=== PATIENT | female | born 1965 | race Caucasian/White ===

== ENCOUNTER 2021-04-01 04:20 | Inpatient (IN) | payer OTHER ==
[2021-04-01] MEDS ORDERED: GENTAMICIN SO4 80 MG/2 ML VIAL ONE (13:30)
[2021-04-01] MEDS ORDERED: THROMBIN (BOVINE) 20,000 UNIT VIAL TP ONE (13:31)
[2021-04-01] MEDS ORDERED: BUPIVACAINE LIPOSOME/PF (EXPAREL) 266 MG/20 ML VIAL ONE (13:31)
[2021-04-01] MEDS ORDERED: DEXAMETHASONE SOD PHOSPHATE 10 MG/1 ML VIAL ONE (14:13)
[2021-04-01] MEDS ORDERED: BUPIVACAINE HCL/PF 0.5% (5MG/ML) 10 ML VIAL ONE (14:13)
[2021-04-01] MEDS ORDERED: MORPHINE 5 MG/10 ML AMP - FOR COMPOUNDING USE ONLY ONE (14:14)
[2021-04-01] MEDS ORDERED: fentaNYL CITRATE 250 MCG/5 ML VIAL ONE (14:14)
[2021-04-01] MEDS ORDERED: MIDAZOLAM HCL 2 MG/2 ML SINGLE DOSE VIAL ONE ×4 (14:14→16:54)
[2021-04-01] MEDS ORDERED: PROPOFOL 20 ML ONE ×8 (14:16→18:26)
[2021-04-01] MEDS ORDERED: DEXMEDETOMIDINE HCL 200 MCG/2 ML IVPB ONE (14:51)
[2021-04-01] MEDS ORDERED: morphine SULFATE/PF 1 MG/2 ML (2cc Syringe - QUVA) IT ONE (15:15)
[2021-04-01] MEDS ORDERED: VANCOMYCIN 1 GM in NS (PRE-DOCKED) 1,000 MG/250 ML IVPB ONE (15:30)
[2021-04-01] MEDS ORDERED: ceFAZolin SODIUM 1 GM VIAL IVPB ONE ×2 (15:30→17:20)
[2021-04-01] MEDS ORDERED: VANCOMYCIN 1,000 MG VIAL (RESTRICTED TO ID ONLY) ONE (15:30)
[2021-04-01] MEDS ORDERED: TRANEXAMIC ACID 1000 MG/10 ML VIAL IVPB ONE (15:30)
[2021-04-01] MEDS ORDERED: ceFAZolin SODIUM 1 GM VIAL ONE ×2 (15:30→17:18)
[2021-04-01] MEDS ORDERED: TRANEXAMIC ACID 1000 MG/10 ML VIAL ONE (15:30)
[2021-04-01] MEDS ORDERED: LIDOCAINE 1%/EPI 1:100000 (20 ML MULTI DOSE VIAL) IJ ONE (15:33)
[2021-04-01] MEDS ORDERED: BACITRACIN 50,000 UNITS VIAL TP ONE (15:35)
[2021-04-01] MEDS ORDERED: GENTAMICIN SO4 80 MG/2 ML VIAL IVPB ONE ×2 (15:35→16:00)
[2021-04-01] MEDS ORDERED: THROMBIN (BOVINE) 5,000 UNIT VIAL TP ONE (15:35)
[2021-04-01] MEDS ORDERED: ONDANSETRON 4 MG/2 ML VIAL ONE (16:40)
[2021-04-01] MEDS ORDERED: DEXAMETHASONE SOD PHOSPHATE 4 MG/1 ML VIAL ONE ×2 (16:40→18:55)
[2021-04-01] MEDS ORDERED: KETAMINE HCL 200 MG/20 ML VIAL ONE (17:29)
[2021-04-01] MEDS ORDERED: GLYCOPYRROLATE 0.2 MG/1 ML VIAL ONE (17:29)
[2021-04-01] MEDS ORDERED: BUPIVACAINE HCL/PF 2.5 MG/ML - 30 ML VIAL IJ ONE (17:34)
[2021-04-01] MEDS ORDERED: BUPIVACAINE LIPOSOME/PF (EXPAREL) 266 MG/20 ML VIAL NR ONE (17:34)
[2021-04-01] MEDS ORDERED: oxyCODONE HCL 5 MG TABLET PO PRN ×2 (17:35)
[2021-04-01] MEDS ORDERED: NALOXONE HCL 0.4 MG/ML VIAL IVPUSH PRN (17:35)
[2021-04-01] MEDS ORDERED: ONDANSETRON 4 MG/2 ML VIAL IVPUSH PRN ×3 (17:35→18:53)
[2021-04-01] MEDS ORDERED: ACETAMINOPHEN 1000 MG/100 ML VIAL (NON FORMULARY) IVPB PRN (17:37)
[2021-04-01] MEDS ORDERED: morphine SULFATE 4 MG/ML VIAL IVPUSH PRN (18:53)
[2021-04-01] MEDS ORDERED: diphenhydrAMINE HCL 25 MG CAPSULE (FP) PO PRN (18:53)
[2021-04-01] MEDS: ACETAMINOPHEN 325 MG TABLET (FP) PO SCH (19:15)
[2021-04-01] MEDS ORDERED: ACETAMINOPHEN INJECTION 100 ML IVPB ONE (19:49)
[2021-04-01] MEDS: LACTATED RINGERS SOLUTION 1,000 ML/1,000 ML INFUS.BAG IV SCH (20:11)
[2021-04-01] MEDS: oxyCODONE HCL 5 MG TABLET PO PRN (21:17)
[2021-04-01] MEDS: DOCUSATE SODIUM 100 MG CAPSULE (FP) PO SCH (22:02)
[2021-04-01] MEDS: HEPARIN NA (PORCINE) 5,000 UNITS/ML 1ML VIAL SQ SCH (22:02)
[2021-04-01] MEDS: diazePAM CARPU-JECT 10 MG/2 ML DISP.SYRIN IVPUSH SCH (22:02)
[2021-04-02] MEDS: ACETAMINOPHEN 325 MG TABLET (FP) PO SCH ×4 (00:32→18:30)
[2021-04-02] MEDS ORDERED: ceFAZolin SODIUM 1 GM VIAL ONE ×3 (01:31→18:17)
[2021-04-02] MEDS ORDERED: DEXTROSE 5%-WATER - 50 ML IVPB ONE ×3 (01:32→18:18)
[2021-04-02] MEDS: CEFAZOLIN 1 GM in DEXTROSE 5%-WATER - 50 ML IVPB SCH ×3 (01:44→18:29)
[2021-04-02] MEDS: oxyCODONE HCL 5 MG TABLET PO PRN ×3 (02:19→14:00)
[2021-04-02 04:43] VITALS: BMI 29.9
[2021-04-02 06:19] LABS: HEMATOCRIT 30.1 % (32.4-45.2); HEMOGLOBIN 10.4 GM/dL (10.7-15.3); MCH 30.6 pg (25.7-33.7); MCHC 34.5 g/dl (32.0-36.0); MEAN CELL VOLUME 88.5 fl (80-96); MEAN PLT VOLUME 8.4 fl (7.5-11.1); PLATELET COUNT 272 10^3/uL (134-434); RDW 13.4 % (11.6-15.6); WHITE BLOOD COUNT 16.7 K/mm3 (4.0-10.0)
[2021-04-02 06:31] LABS: BLOOD UREA NITROGEN 14.1 mg/dL (7-18)
[2021-04-02 06:34] LABS: CALCIUM 7.9 mg/dL (8.5-10.1); CREATININE 0.9 mg/dL (0.55-1.3)
[2021-04-02] MEDS: HEPARIN NA (PORCINE) 5,000 UNITS/ML 1ML VIAL SQ SCH ×3 (06:39→22:59)
[2021-04-02] MEDS: DOCUSATE SODIUM 100 MG CAPSULE (FP) PO SCH ×3 (06:39→22:59)
[2021-04-02] MEDS: FERROUS SO4 325 MG TABLET (FP) PO SCH (09:29)
[2021-04-02] MEDS: FOLIC ACID 1 MG TABLET (FP) PO SCH (09:29)
[2021-04-02] MEDS: diazePAM CARPU-JECT 10 MG/2 ML DISP.SYRIN IVPUSH SCH ×2 (11:05→23:01)
[2021-04-02] MEDS: ASPIRIN COATED 81 MG TABLET.EC PO SCH (11:52)
[2021-04-02] MEDS ORDERED: LEVALBUTEROL HCL 1.25 MG/3 ML IH PRN (15:06)
[2021-04-02] MEDS ORDERED: [UNRECOGNIZED DRUG - OTHER] IH PRN (15:06)
[2021-04-02] MEDS ORDERED: PATIENT'S OWN MEDICATION (NON-FORMULARY) (Ipratropium Bromide [Atrovent Hfa] 12.9 GM Hfa.A IH SCH (15:15)
[2021-04-02] MEDS: LACTATED RINGERS SOLUTION 1,000 ML/1,000 ML INFUS.BAG IV SCH (18:29)
[2021-04-02] MEDS: oxyCODONE HCL 10 MG SUSTAINED ACTING TABLET PO SCH ×2 (18:29→22:59)
[2021-04-02] MEDS ORDERED: ALBUTEROL SO4 HFA INHALER IH PRN (18:40)
[2021-04-02] MEDS ORDERED: LATANOPROST 0.005% OPHTH SOLN 2.5ML BOTTLE OU SCH (22:00)
[2021-04-02] MEDS ORDERED: PATIENT'S OWN MEDICATION (NON-FORMULARY) (Brinzolamide/Brimonidine Tart [Simbrinza 1%-0.2% OP SCH (22:00)
[2021-04-02] MEDS ORDERED: PATIENT'S OWN MEDICATION (NON-FORMULARY) (Cyclosporine [Restasis] 1 EACH Droperette) OP SCH (22:00)
[2021-04-02] MEDS ORDERED: MONTELUKAST NA 10 MG TABLET PO SCH (22:00)
[2021-04-02] MEDS: BRIMONIDINE TARTRATE 0.2% OPHTHALMIC 5 ML BOTTLE OU SCH (22:59)
[2021-04-02] MEDS: BUDESONIDE/FORMETEROL FUMARATE 160/4.5 mcg INHALER IH SCH (23:00)
[2021-04-02] MEDS: DORZOLAMIDE 2% HCL OPHTHALMIC SOLUTION 10 ML BOTTLE OU SCH (23:01)
[2021-04-03] MEDS: ACETAMINOPHEN 325 MG TABLET (FP) PO SCH ×5 (00:08→23:38)
[2021-04-03] MEDS ORDERED: ceFAZolin SODIUM 1 GM VIAL ONE ×3 (01:48→18:09)
[2021-04-03] MEDS ORDERED: DEXTROSE 5%-WATER - 50 ML IVPB ONE ×3 (01:49→18:09)
[2021-04-03] MEDS: CEFAZOLIN 1 GM in DEXTROSE 5%-WATER - 50 ML IVPB SCH ×3 (02:03→18:30)
[2021-04-03] MEDS: HEPARIN NA (PORCINE) 5,000 UNITS/ML 1ML VIAL SQ SCH ×3 (06:01→21:39)
[2021-04-03] MEDS: DOCUSATE SODIUM 100 MG CAPSULE (FP) PO SCH ×3 (06:01→21:39)
[2021-04-03] MEDS: oxyCODONE HCL 5 MG TABLET PO PRN ×3 (06:02→14:36)
[2021-04-03 06:34] LABS: HEMATOCRIT 25.3 % (32.4-45.2); HEMOGLOBIN 8.4 GM/dL (10.7-15.3); LYMPH % 12.7 % (8-40); MCH 30.2 pg (25.7-33.7); MCHC 33.1 g/dl (32.0-36.0); MEAN CELL VOLUME 91.1 fl (80-96); MEAN PLT VOLUME 8.9 fl (7.5-11.1); MONO % 6.1 % (3.8-10.2); NEUT % 81.2 % (42.8-82.8); PLATELET COUNT 236 10^3/uL (134-434); RBC 2.78 M/mm3 (3.60-5.2); RDW 13.7 % (11.6-15.6); WHITE BLOOD COUNT 17.4 K/mm3 (4.0-10.0)
[2021-04-03 07:59] LABS: ALBUMIN 2.4 g/dl (3.4-5.0); BILIRUBIN,TOTAL 0.2 mg/dL (0.2-1); CALCIUM 8.2 mg/dL (8.5-10.1); CREATININE 0.9 mg/dL (0.55-1.3); MAGNESIUM 2.3 mg/dL (1.8-2.4); PHOSPHOROUS 2.6 mg/dL (2.5-4.9); TOT PROT 4.7 g/dl (6.4-8.2)
[2021-04-03] MEDS ORDERED: SODIUM CHLORIDE 1,000 ML IV STA (08:13)
[2021-04-03] MEDS ORDERED: LACTATED RINGERS SOLUTION 1,000 ML/1,000 ML INFUS.BAG IV STA (08:37)
[2021-04-03] MEDS: FERROUS SO4 325 MG TABLET (FP) PO SCH (09:23)
[2021-04-03] MEDS: oxyCODONE HCL 10 MG SUSTAINED ACTING TABLET PO SCH ×2 (09:23→21:39)
[2021-04-03] MEDS: BRIMONIDINE TARTRATE 0.2% OPHTHALMIC 5 ML BOTTLE OU SCH ×2 (09:23→21:38)
[2021-04-03] MEDS: FOLIC ACID 1 MG TABLET (FP) PO SCH (09:23)
[2021-04-03] MEDS: ASPIRIN COATED 81 MG TABLET.EC PO SCH (09:23)
[2021-04-03] MEDS: diazePAM CARPU-JECT 10 MG/2 ML DISP.SYRIN IVPUSH SCH ×2 (09:24→21:41)
[2021-04-03] MEDS: DORZOLAMIDE 2% HCL OPHTHALMIC SOLUTION 10 ML BOTTLE OU SCH ×2 (09:24→21:40)
[2021-04-03] MEDS: BUDESONIDE/FORMETEROL FUMARATE 160/4.5 mcg INHALER IH SCH ×2 (09:27→21:40)
[2021-04-03] MEDS ORDERED: PATIENT'S OWN MEDICATION (NON-FORMULARY) (Linaclotide [Linzess] 145 MCG Capsule) PO SCH (10:00)
[2021-04-03] MEDS ORDERED: TIOTROPIUM BROMIDE 2.5 MCG (SPIRIVA) RESPIMAT INHALER IH SCH (10:00)
[2021-04-03] MEDS ORDERED: VITAMIN B COMPLEX W/C COMBO TABLET (FP) PO SCH (10:00)
[2021-04-03] MEDS ORDERED: PANTOPRAZOLE 20 MG TABLET PO SCH (10:00)
[2021-04-03] MEDS: LACTATED RINGERS SOLUTION 1,000 ML/1,000 ML INFUS.BAG IV SCH ×2 (18:30→19:15)
[2021-04-03] MEDS ORDERED: oxyCODONE HCL 5 MG TABLET PO PRN (19:14)
[2021-04-03] MEDS ORDERED: NALOXONE HCL 0.4 MG/ML VIAL IVPUSH PRN (19:14)
[2021-04-03] MEDS ORDERED: diphenhydrAMINE HCL 25 MG CAPSULE (FP) PO PRN (19:14)
[2021-04-03] MEDS ORDERED: ALBUTEROL SO4 HFA INHALER IH PRN (19:14)
[2021-04-03] MEDS ORDERED: ONDANSETRON 4 MG/2 ML VIAL IVPUSH PRN ×2 (19:14)
[2021-04-03] MEDS: MONTELUKAST NA 10 MG TABLET PO SCH (21:40)
[2021-04-03] MEDS: LATANOPROST 0.005% OPHTH SOLN 2.5ML BOTTLE OU SCH (21:41)
[2021-04-04] MEDS ORDERED: ceFAZolin SODIUM 1 GM VIAL ONE ×3 (01:11→15:09)
[2021-04-04] MEDS ORDERED: DEXTROSE 5%-WATER - 50 ML IVPB ONE ×3 (01:12→15:09)
[2021-04-04] MEDS: CEFAZOLIN 1 GM in DEXTROSE 5%-WATER - 50 ML IVPB SCH ×3 (01:15→17:42)
[2021-04-04] MEDS: oxyCODONE HCL 5 MG TABLET PO PRN ×2 (03:38→19:25)
[2021-04-04] MEDS: ACETAMINOPHEN 325 MG TABLET (FP) PO SCH ×3 (05:06→17:42)
[2021-04-04] MEDS: DOCUSATE SODIUM 100 MG CAPSULE (FP) PO SCH ×3 (05:08→22:42)
[2021-04-04] MEDS: HEPARIN NA (PORCINE) 5,000 UNITS/ML 1ML VIAL SQ SCH ×3 (05:08→22:43)
[2021-04-04 07:02] LABS: BASO % 0.1 % (0-2.0); EOS % 0.3 % (0-4.5); HEMATOCRIT 23.5 % (32.4-45.2); LYMPH % 31.9 % (8-40); MCH 30.8 pg (25.7-33.7); MCHC 34.2 g/dl (32.0-36.0); MEAN CELL VOLUME 89.9 fl (80-96); MEAN PLT VOLUME 8.1 fl (7.5-11.1); MONO % 6.7 % (3.8-10.2); PLATELET COUNT 204 10^3/uL (134-434); RBC 2.61 M/mm3 (3.60-5.2)
[2021-04-04 07:23] LABS: ALBUMIN 2.3 g/dl (3.4-5.0); CALCIUM 7.9 mg/dL (8.5-10.1)
[2021-04-04 07:24] LABS: BLOOD UREA NITROGEN 9.7 mg/dL (7-18); MAGNESIUM 2.2 mg/dL (1.8-2.4)
[2021-04-04 07:26] LABS: CREATININE 0.7 mg/dL (0.55-1.3)
[2021-04-04 07:27] LABS: PHOSPHOROUS 2.3 mg/dL (2.5-4.9)
[2021-04-04 07:28] LABS: BILIRUBIN,TOTAL 0.4 mg/dL (0.2-1); TOT PROT 4.6 g/dl (6.4-8.2)
[2021-04-04] MEDS ORDERED: SODIUM PHOSPHATE - 20 MM in DEXTROSE 5%-WATER - 250 ML IVPB ONE (08:30)
[2021-04-04] MEDS: diazePAM CARPU-JECT 10 MG/2 ML DISP.SYRIN IVPUSH SCH (09:55)
[2021-04-04] MEDS: oxyCODONE HCL 10 MG SUSTAINED ACTING TABLET PO SCH ×2 (09:55→22:41)
[2021-04-04] MEDS: BRIMONIDINE TARTRATE 0.2% OPHTHALMIC 5 ML BOTTLE OU SCH ×2 (09:58→22:39)
[2021-04-04] MEDS: DORZOLAMIDE 2% HCL OPHTHALMIC SOLUTION 10 ML BOTTLE OU SCH ×2 (09:59→22:41)
[2021-04-04] MEDS: BUDESONIDE/FORMETEROL FUMARATE 160/4.5 mcg INHALER IH SCH ×2 (09:59→22:43)
[2021-04-04] MEDS ORDERED: PATIENT'S OWN MEDICATION (NON-FORMULARY) (Linaclotide [Linzess] 145 MCG) PO SCH (10:00)
[2021-04-04] MEDS ORDERED: VITAMIN B COMPLEX W/C COMBO TABLET (FP) PO SCH (10:00)
[2021-04-04] MEDS ORDERED: FOLIC ACID 1 MG TABLET (FP) PO SCH (10:00)
[2021-04-04] MEDS ORDERED: PANTOPRAZOLE 20 MG TABLET PO SCH (10:00)
[2021-04-04] MEDS ORDERED: FERROUS SO4 325 MG TABLET (FP) PO SCH (10:00)
[2021-04-04] MEDS ORDERED: TIOTROPIUM BROMIDE 2.5 MCG (SPIRIVA) RESPIMAT INHALER IH SCH (10:00)
[2021-04-04] MEDS ORDERED: ASPIRIN COATED 81 MG TABLET.EC PO SCH (10:00)
[2021-04-04] MEDS: LACTATED RINGERS SOLUTION 1,000 ML/1,000 ML INFUS.BAG IV SCH ×2 (15:58→19:20)
[2021-04-04] MEDS ORDERED: BACLOFEN 10 MG TABLET (FP) PO ONE (21:32)
[2021-04-04] MEDS: LATANOPROST 0.005% OPHTH SOLN 2.5ML BOTTLE OU SCH (22:41)
[2021-04-04] MEDS: MONTELUKAST NA 10 MG TABLET PO SCH (22:43)
[2021-04-05] MEDS: LACTATED RINGERS SOLUTION 1,000 ML/1,000 ML INFUS.BAG IV SCH ×2 (00:36→10:30)
[2021-04-05] MEDS ORDERED: ceFAZolin SODIUM 1 GM VIAL ONE ×3 (02:06→17:19)
[2021-04-05] MEDS ORDERED: DEXTROSE 5%-WATER - 50 ML IVPB ONE ×3 (02:07→17:19)
[2021-04-05] MEDS: CEFAZOLIN 1 GM in DEXTROSE 5%-WATER - 50 ML IVPB SCH ×3 (02:15→17:28)
[2021-04-05] MEDS: ACETAMINOPHEN 325 MG TABLET (FP) PO SCH ×5 (02:17→23:39)
[2021-04-05] MEDS: DOCUSATE SODIUM 100 MG CAPSULE (FP) PO SCH ×3 (07:28→21:09)
[2021-04-05] MEDS ORDERED: ALBUTEROL SO4 HFA INHALER IH PRN (07:30)
[2021-04-05] MEDS ORDERED: ONDANSETRON 4 MG/2 ML VIAL IVPUSH PRN (07:30)
[2021-04-05] MEDS ORDERED: diphenhydrAMINE HCL 25 MG CAPSULE (FP) PO PRN (07:30)
[2021-04-05] MEDS ORDERED: NALOXONE HCL 0.4 MG/ML VIAL IVPUSH PRN (07:30)
[2021-04-05] MEDS: HEPARIN NA (PORCINE) 5,000 UNITS/ML 1ML VIAL SQ SCH ×3 (07:31→21:06)
[2021-04-05 07:47] LABS: BASO % 0.3 % (0-2.0); EOS % 0.7 % (0-4.5); HEMATOCRIT 25.8 % (32.4-45.2); HEMOGLOBIN 8.9 GM/dL (10.7-15.3); LYMPH % 32.6 % (8-40); MCH 31.1 pg (25.7-33.7); MCHC 34.4 g/dl (32.0-36.0); MEAN CELL VOLUME 90.5 fl (80-96); MEAN PLT VOLUME 8.1 fl (7.5-11.1); MONO % 5.1 % (3.8-10.2); NEUT % 61.3 % (42.8-82.8); PLATELET COUNT 241 10^3/uL (134-434); RBC 2.85 M/mm3 (3.60-5.2); RDW 13.9 % (11.6-15.6); WHITE BLOOD COUNT 10.4 K/mm3 (4.0-10.0)
[2021-04-05] MEDS: PATIENT'S OWN MEDICATION (NON-FORMULARY) (Cyclosporine [Restasis] 1 EACH) OP SCH (07:49)
[2021-04-05 08:12] LABS: ALBUMIN 2.4 g/dl (3.4-5.0); BILIRUBIN,TOTAL 0.3 mg/dL (0.2-1); BLOOD UREA NITROGEN 6.9 mg/dL (7-18); CALCIUM 8.2 mg/dL (8.5-10.1); CREATININE 0.7 mg/dL (0.55-1.3); MAGNESIUM 2.4 mg/dL (1.8-2.4); PHOSPHOROUS 2.6 mg/dL (2.5-4.9); TOT PROT 4.9 g/dl (6.4-8.2)
[2021-04-05] MEDS: PANTOPRAZOLE 20 MG TABLET PO SCH (09:42)
[2021-04-05] MEDS: FOLIC ACID 1 MG TABLET (FP) PO SCH (09:42)
[2021-04-05] MEDS: ASPIRIN COATED 81 MG TABLET.EC PO SCH (09:43)
[2021-04-05] MEDS: VITAMIN B COMPLEX W/C COMBO TABLET (FP) PO SCH (09:43)
[2021-04-05] MEDS: oxyCODONE HCL 10 MG SUSTAINED ACTING TABLET PO SCH ×2 (09:43→21:16)
[2021-04-05] MEDS: FERROUS SO4 325 MG TABLET (FP) PO SCH (09:43)
[2021-04-05] MEDS: BUDESONIDE/FORMETEROL FUMARATE 160/4.5 mcg INHALER IH SCH ×2 (09:46→21:18)
[2021-04-05] MEDS: TIOTROPIUM BROMIDE 2.5 MCG (SPIRIVA) RESPIMAT INHALER IH SCH (09:47)
[2021-04-05] MEDS: BRIMONIDINE TARTRATE 0.2% OPHTHALMIC 5 ML BOTTLE OU SCH ×2 (09:47→23:40)
[2021-04-05] MEDS: DORZOLAMIDE 2% HCL OPHTHALMIC SOLUTION 10 ML BOTTLE OU SCH ×2 (09:48→21:18)
[2021-04-05] MEDS ORDERED: PATIENT'S OWN MEDICATION (NON-FORMULARY) (Cyclosporine [Restasis] 1 EACH) OP SCH (10:00)
[2021-04-05] MEDS ORDERED: PATIENT'S OWN MEDICATION (NON-FORMULARY) (Linaclotide [Linzess] 145 MCG) PO SCH (10:00)
[2021-04-05] MEDS: MONTELUKAST NA 10 MG TABLET PO SCH (21:09)
[2021-04-05] MEDS: LATANOPROST 0.005% OPHTH SOLN 2.5ML BOTTLE OU SCH (21:19)
[2021-04-06] MEDS ORDERED: DEXTROSE 5%-WATER - 50 ML IVPB ONE ×3 (01:29→18:04)
[2021-04-06] MEDS ORDERED: ceFAZolin SODIUM 1 GM VIAL ONE ×3 (01:29→18:03)
[2021-04-06] MEDS: CEFAZOLIN 1 GM in DEXTROSE 5%-WATER - 50 ML IVPB SCH ×3 (01:31→18:47)
[2021-04-06] MEDS: oxyCODONE HCL 5 MG TABLET PO PRN ×3 (03:26→19:35)
[2021-04-06] MEDS: LACTATED RINGERS SOLUTION 1,000 ML/1,000 ML INFUS.BAG IV SCH ×2 (04:00→09:15)
[2021-04-06] MEDS: HEPARIN NA (PORCINE) 5,000 UNITS/ML 1ML VIAL SQ SCH ×3 (05:07→21:52)
[2021-04-06] MEDS: ACETAMINOPHEN 325 MG TABLET (FP) PO SCH ×4 (05:08→23:06)
[2021-04-06] MEDS: DOCUSATE SODIUM 100 MG CAPSULE (FP) PO SCH ×3 (05:09→21:52)
[2021-04-06 08:58] LABS: BASO % 0.3 % (0-2.0); EOS % 1.1 % (0-4.5); HEMATOCRIT 24.3 % (32.4-45.2); HEMOGLOBIN 8.3 GM/dL (10.7-15.3); LYMPH % 24.7 % (8-40); MEAN CELL VOLUME 91.1 fl (80-96); MEAN PLT VOLUME 8.2 fl (7.5-11.1); MONO % 5.5 % (3.8-10.2); NEUT % 68.4 % (42.8-82.8); PLATELET COUNT 266 10^3/uL (134-434); RBC 2.67 M/mm3 (3.60-5.2); RDW 13.9 % (11.6-15.6); WHITE BLOOD COUNT 9.2 K/mm3 (4.0-10.0)
[2021-04-06] MEDS: oxyCODONE HCL 10 MG SUSTAINED ACTING TABLET PO SCH ×2 (09:21→21:52)
[2021-04-06] MEDS: ASPIRIN COATED 81 MG TABLET.EC PO SCH (09:22)
[2021-04-06] MEDS: PANTOPRAZOLE 20 MG TABLET PO SCH (09:23)
[2021-04-06] MEDS: BRIMONIDINE TARTRATE 0.2% OPHTHALMIC 5 ML BOTTLE OU SCH ×2 (09:23→21:56)
[2021-04-06] MEDS: FOLIC ACID 1 MG TABLET (FP) PO SCH (09:24)
[2021-04-06] MEDS: TIOTROPIUM BROMIDE 2.5 MCG (SPIRIVA) RESPIMAT INHALER IH SCH (09:24)
[2021-04-06] MEDS: BUDESONIDE/FORMETEROL FUMARATE 160/4.5 mcg INHALER IH SCH ×2 (09:24→21:57)
[2021-04-06] MEDS: FERROUS SO4 325 MG TABLET (FP) PO SCH (09:24)
[2021-04-06] MEDS: VITAMIN B COMPLEX W/C COMBO TABLET (FP) PO SCH (09:25)
[2021-04-06 09:29] LABS: ALBUMIN 2.3 g/dl (3.4-5.0); MAGNESIUM 2.3 mg/dL (1.8-2.4)
[2021-04-06 09:30] LABS: PHOSPHOROUS 2.8 mg/dL (2.5-4.9)
[2021-04-06 09:32] LABS: CREATININE 0.7 mg/dL (0.55-1.3)
[2021-04-06 09:34] LABS: BILIRUBIN,TOTAL 0.3 mg/dL (0.2-1); TOT PROT 4.7 g/dl (6.4-8.2)
[2021-04-06] MEDS: DORZOLAMIDE 2% HCL OPHTHALMIC SOLUTION 10 ML BOTTLE OU SCH ×2 (10:00→21:56)
[2021-04-06] MEDS: MONTELUKAST NA 10 MG TABLET PO SCH (21:52)
[2021-04-06] MEDS: LATANOPROST 0.005% OPHTH SOLN 2.5ML BOTTLE OU SCH (21:56)
[2021-04-07] MEDS ORDERED: ceFAZolin SODIUM 1 GM VIAL ONE ×3 (01:05→17:21)
[2021-04-07] MEDS ORDERED: DEXTROSE 5%-WATER - 50 ML IVPB ONE ×3 (01:06→17:21)
[2021-04-07] MEDS: CEFAZOLIN 1 GM in DEXTROSE 5%-WATER - 50 ML IVPB SCH ×3 (01:12→17:26)
[2021-04-07] MEDS: DOCUSATE SODIUM 100 MG CAPSULE (FP) PO SCH ×3 (05:55→21:21)
[2021-04-07] MEDS: HEPARIN NA (PORCINE) 5,000 UNITS/ML 1ML VIAL SQ SCH ×3 (05:55→21:26)
[2021-04-07] MEDS: ACETAMINOPHEN 325 MG TABLET (FP) PO SCH ×3 (05:56→17:24)
[2021-04-07 08:34] LABS: HEMATOCRIT 24.4 % (32.4-45.2); HEMOGLOBIN 8.3 GM/dL (10.7-15.3); MCH 31.2 pg (25.7-33.7); MCHC 34.1 g/dl (32.0-36.0); MEAN CELL VOLUME 91.4 fl (80-96); MEAN PLT VOLUME 7.8 fl (7.5-11.1); PLATELET COUNT 292 10^3/uL (134-434); RBC 2.67 M/mm3 (3.60-5.2); RDW 14.2 % (11.6-15.6)
[2021-04-07] MEDS: oxyCODONE HCL 10 MG SUSTAINED ACTING TABLET PO SCH ×2 (09:13→21:21)
[2021-04-07] MEDS: VITAMIN B COMPLEX W/C COMBO TABLET (FP) PO SCH (09:16)
[2021-04-07] MEDS: FOLIC ACID 1 MG TABLET (FP) PO SCH (09:16)
[2021-04-07] MEDS: FERROUS SO4 325 MG TABLET (FP) PO SCH (09:16)
[2021-04-07] MEDS: ASPIRIN COATED 81 MG TABLET.EC PO SCH (09:16)
[2021-04-07] MEDS: TIOTROPIUM BROMIDE 2.5 MCG (SPIRIVA) RESPIMAT INHALER IH SCH (09:17)
[2021-04-07] MEDS: BUDESONIDE/FORMETEROL FUMARATE 160/4.5 mcg INHALER IH SCH ×2 (09:18→21:24)
[2021-04-07] MEDS: DORZOLAMIDE 2% HCL OPHTHALMIC SOLUTION 10 ML BOTTLE OU SCH ×2 (09:21→21:23)
[2021-04-07] MEDS: PANTOPRAZOLE 20 MG TABLET PO SCH (09:21)
[2021-04-07] MEDS: BRIMONIDINE TARTRATE 0.2% OPHTHALMIC 5 ML BOTTLE OU SCH ×2 (09:22→21:21)
[2021-04-07 10:11] LABS: ANISOCYTOSIS 0; MACROCYTOSIS 0; PLATELET ESTIMATE NORMAL
[2021-04-07] MEDS: oxyCODONE HCL 5 MG TABLET PO PRN ×2 (13:20→17:26)
[2021-04-07] MEDS: CYCLOBENZAPRINE HCL 10 MG TABLET (FP) PO PRN ×2 (13:27→21:35)
[2021-04-07] MEDS: MONTELUKAST NA 10 MG TABLET PO SCH (21:22)
[2021-04-07] MEDS: LATANOPROST 0.005% OPHTH SOLN 2.5ML BOTTLE OU SCH (21:23)
[2021-04-08] MEDS ORDERED: ceFAZolin SODIUM 1 GM VIAL ONE ×3 (01:32→16:53)
[2021-04-08] MEDS ORDERED: DEXTROSE 5%-WATER - 50 ML IVPB ONE ×3 (01:33→16:53)
[2021-04-08] MEDS: CEFAZOLIN 1 GM in DEXTROSE 5%-WATER - 50 ML IVPB SCH ×3 (01:37→17:05)
[2021-04-08] MEDS: oxyCODONE HCL 5 MG TABLET PO PRN ×2 (04:04→15:01)
[2021-04-08] MEDS: ACETAMINOPHEN 325 MG TABLET (FP) PO SCH ×2 (06:07→06:08)
[2021-04-08] MEDS: CYCLOBENZAPRINE HCL 10 MG TABLET (FP) PO PRN (06:08)
[2021-04-08] MEDS: HEPARIN NA (PORCINE) 5,000 UNITS/ML 1ML VIAL SQ SCH ×3 (06:09→21:54)
[2021-04-08] MEDS: DOCUSATE SODIUM 100 MG CAPSULE (FP) PO SCH ×3 (06:10→21:53)
[2021-04-08] MEDS: HYDROmorphone HCl 2 MG/ML VIAL IVPUSH PRN ×4 (08:03→20:16)
[2021-04-08] MEDS ORDERED: oxyCODONE HCL 5 MG TABLET PO PRN (10:33)
[2021-04-08] MEDS: VITAMIN B COMPLEX W/C COMBO TABLET (FP) PO SCH (12:01)
[2021-04-08] MEDS: BUDESONIDE/FORMETEROL FUMARATE 160/4.5 mcg INHALER IH SCH ×2 (12:01→21:54)
[2021-04-08] MEDS: PANTOPRAZOLE 20 MG TABLET PO SCH (12:01)
[2021-04-08] MEDS: ASPIRIN COATED 81 MG TABLET.EC PO SCH (12:01)
[2021-04-08] MEDS: FERROUS SO4 325 MG TABLET (FP) PO SCH (12:01)
[2021-04-08] MEDS: FOLIC ACID 1 MG TABLET (FP) PO SCH (12:01)
[2021-04-08] MEDS: BRIMONIDINE TARTRATE 0.2% OPHTHALMIC 5 ML BOTTLE OU SCH ×2 (12:02→21:54)
[2021-04-08] MEDS: DORZOLAMIDE 2% HCL OPHTHALMIC SOLUTION 10 ML BOTTLE OU SCH ×2 (12:02→21:54)
[2021-04-08] MEDS: ACETAMINOPHEN 500 MG TABLET (FP) PO SCH ×3 (12:02→21:54)
[2021-04-08] MEDS: TIOTROPIUM BROMIDE 2.5 MCG (SPIRIVA) RESPIMAT INHALER IH SCH (12:02)
[2021-04-08] MEDS: CYCLOBENZAPRINE HCL 10 MG TABLET (FP) PO SCH ×2 (14:58→21:53)
[2021-04-08] MEDS: MONTELUKAST NA 10 MG TABLET PO SCH (21:53)
[2021-04-08] MEDS: LATANOPROST 0.005% OPHTH SOLN 2.5ML BOTTLE OU SCH (21:54)
[2021-04-09] MEDS: HYDROmorphone HCl 2 MG/ML VIAL IVPUSH PRN ×3 (00:20→08:50)
[2021-04-09] MEDS ORDERED: ceFAZolin SODIUM 1 GM VIAL ONE ×3 (01:08→16:40)
[2021-04-09] MEDS ORDERED: DEXTROSE 5%-WATER - 50 ML IVPB ONE ×3 (01:08→16:40)
[2021-04-09] MEDS: CEFAZOLIN 1 GM in DEXTROSE 5%-WATER - 50 ML IVPB SCH ×3 (01:19→17:53)
[2021-04-09] MEDS: CYCLOBENZAPRINE HCL 10 MG TABLET (FP) PO SCH ×3 (05:03→21:10)
[2021-04-09] MEDS: HEPARIN NA (PORCINE) 5,000 UNITS/ML 1ML VIAL SQ SCH ×3 (05:03→21:10)
[2021-04-09] MEDS: DOCUSATE SODIUM 100 MG CAPSULE (FP) PO SCH ×3 (05:03→21:10)
[2021-04-09] MEDS: ACETAMINOPHEN 500 MG TABLET (FP) PO SCH ×2 (05:03→11:06)
[2021-04-09 07:48] LABS: HEMATOCRIT 27.5 % (32.4-45.2); HEMOGLOBIN 9.2 GM/dL (10.7-15.3); MCH 30.8 pg (25.7-33.7); MCHC 33.5 g/dl (32.0-36.0); MEAN CELL VOLUME 91.8 fl (80-96); MEAN PLT VOLUME 7.3 fl (7.5-11.1); PLATELET COUNT 372 10^3/uL (134-434); RBC 2.99 M/mm3 (3.60-5.2); RDW 14.6 % (11.6-15.6); WHITE BLOOD COUNT 12.9 K/mm3 (4.0-10.0)
[2021-04-09 08:05] LABS: BILIRUBIN,TOTAL 0.3 mg/dL (0.2-1); TOT PROT 6.2 g/dl (6.4-8.2)
[2021-04-09 08:06] LABS: BLOOD UREA NITROGEN 15.6 mg/dL (7-18); CALCIUM 8.4 mg/dL (8.5-10.1)
[2021-04-09 08:07] LABS: MAGNESIUM 2.2 mg/dL (1.8-2.4)
[2021-04-09 08:08] LABS: CREATININE 0.7 mg/dL (0.55-1.3)
[2021-04-09 08:09] LABS: PHOSPHOROUS 3.3 mg/dL (2.5-4.9)
[2021-04-09 08:28] LABS: ALBUMIN 2.8 g/dl (3.4-5.0)
[2021-04-09] MEDS ORDERED: PT OWN MED DRAWER 7, Y5N ONE (08:39)
[2021-04-09] MEDS ORDERED: HYDROmorphone HCl 2 MG/ML VIAL IVPUSH PRN (08:58)
[2021-04-09] MEDS ORDERED: LACTATED RINGERS SOLUTION 1000 ML INFUS.BAG IV ONE (09:01)
[2021-04-09] MEDS: FERROUS SO4 325 MG TABLET (FP) PO SCH (09:01)
[2021-04-09] MEDS: VITAMIN B COMPLEX W/C COMBO TABLET (FP) PO SCH (09:01)
[2021-04-09] MEDS: PANTOPRAZOLE 20 MG TABLET PO SCH (09:01)
[2021-04-09] MEDS: FOLIC ACID 1 MG TABLET (FP) PO SCH (09:01)
[2021-04-09] MEDS: BRIMONIDINE TARTRATE 0.2% OPHTHALMIC 5 ML BOTTLE OU SCH ×2 (09:02→21:09)
[2021-04-09] MEDS: DORZOLAMIDE 2% HCL OPHTHALMIC SOLUTION 10 ML BOTTLE OU SCH ×2 (09:02→21:09)
[2021-04-09] MEDS: TIOTROPIUM BROMIDE 2.5 MCG (SPIRIVA) RESPIMAT INHALER IH SCH (09:02)
[2021-04-09] MEDS: BUDESONIDE/FORMETEROL FUMARATE 160/4.5 mcg INHALER IH SCH ×2 (09:02→21:07)
[2021-04-09] MEDS: ASPIRIN COATED 81 MG TABLET.EC PO SCH (09:03)
[2021-04-09 10:56] LABS: ANISOCYTOSIS 0; MACROCYTOSIS 0; PLATELET ESTIMATE NORMAL
[2021-04-09] MEDS: oxyCODONE HCL 5 MG TABLET PO PRN (16:34)
[2021-04-09] MEDS: LATANOPROST 0.005% OPHTH SOLN 2.5ML BOTTLE OU SCH (21:09)
[2021-04-09] MEDS: MONTELUKAST NA 10 MG TABLET PO SCH (21:10)
[2021-04-10] MEDS ORDERED: ceFAZolin SODIUM 1 GM VIAL ONE ×2 (01:44→10:09)
[2021-04-10] MEDS ORDERED: DEXTROSE 5%-WATER - 50 ML IVPB ONE ×2 (01:44→10:09)
[2021-04-10] MEDS: CEFAZOLIN 1 GM in DEXTROSE 5%-WATER - 50 ML IVPB SCH ×2 (01:52→10:23)
[2021-04-10] MEDS: oxyCODONE HCL 5 MG TABLET PO PRN ×2 (02:16→10:23)
[2021-04-10] MEDS: CYCLOBENZAPRINE HCL 10 MG TABLET (FP) PO SCH (05:55)
[2021-04-10] MEDS: DOCUSATE SODIUM 100 MG CAPSULE (FP) PO SCH (05:55)
[2021-04-10] MEDS: HEPARIN NA (PORCINE) 5,000 UNITS/ML 1ML VIAL SQ SCH (05:55)
[2021-04-10 06:00] VITALS: TEMP 98.4
[2021-04-10 07:23] LABS: HEMATOCRIT 25.9 % (32.4-45.2); MCH 31.4 pg (25.7-33.7); MCHC 34.7 g/dl (32.0-36.0); MEAN CELL VOLUME 90.5 fl (80-96); MEAN PLT VOLUME 6.9 fl (7.5-11.1); PLATELET COUNT 378 10^3/uL (134-434); RBC 2.86 M/mm3 (3.60-5.2); RDW 14.4 % (11.6-15.6); WHITE BLOOD COUNT 12.6 K/mm3 (4.0-10.0)
[2021-04-10 07:47] LABS: ALBUMIN 2.7 g/dl (3.4-5.0); BLOOD UREA NITROGEN 13.4 mg/dL (7-18); MAGNESIUM 1.9 mg/dL (1.8-2.4)
[2021-04-10 07:48] LABS: CALCIUM 8.2 mg/dL (8.5-10.1)
[2021-04-10 07:49] LABS: CREATININE 0.6 mg/dL (0.55-1.3)
[2021-04-10 07:50] LABS: PHOSPHOROUS 3.3 mg/dL (2.5-4.9)
[2021-04-10 07:51] LABS: BILIRUBIN,TOTAL 0.4 mg/dL (0.2-1)
[2021-04-10 07:52] LABS: TOT PROT 5.4 g/dl (6.4-8.2)
[2021-04-10 09:06] LABS: ANISOCYTOSIS 1+; MACROCYTOSIS 0; OVALOCYTE 1+; PLATELET ESTIMATE NORMAL; TEAR DROP CELLS 1+
[2021-04-10] MEDS: FERROUS SO4 325 MG TABLET (FP) PO SCH (10:22)
[2021-04-10] MEDS: VITAMIN B COMPLEX W/C COMBO TABLET (FP) PO SCH (10:22)
[2021-04-10] MEDS: FOLIC ACID 1 MG TABLET (FP) PO SCH (10:22)
[2021-04-10] MEDS: PANTOPRAZOLE 20 MG TABLET PO SCH (10:22)
[2021-04-10] MEDS: ASPIRIN COATED 81 MG TABLET.EC PO SCH (10:22)
[2021-04-10] MEDS: DORZOLAMIDE 2% HCL OPHTHALMIC SOLUTION 10 ML BOTTLE OU SCH (10:25)
[2021-04-10] MEDS: BUDESONIDE/FORMETEROL FUMARATE 160/4.5 mcg INHALER IH SCH (10:25)
[2021-04-10] MEDS: BRIMONIDINE TARTRATE 0.2% OPHTHALMIC 5 ML BOTTLE OU SCH (10:25)
[2021-04-10] MEDS: TIOTROPIUM BROMIDE 2.5 MCG (SPIRIVA) RESPIMAT INHALER IH SCH (10:25)
[2021-04-10 10:39] VITALS: BP 139/82; PULSE 98
== END 2021-04-10 13:29 | disposition home or self-care (01) | DRG 454 ==
LOC: J2C 04:20 → JICU 21:12 → J7W 04-04 19:18
PROVIDERS: ADMIT Neurological Surgery
PROC: 0SG1071 Fusion of 2 or more Lumbar Vertebral Joints with Autologous Tissue Substitute, Posterior Approach, Posterior Column, Open Approach (ICD-10-PCS; 2021-04-01)
PROC: 0SB20ZZ Excision of Lumbar Vertebral Disc, Open Approach (ICD-10-PCS; 2021-04-01)
PROC: 0SG30AJ Fusion of Lumbosacral Joint with Interbody Fusion Device, Posterior Approach, Anterior Column, Open Approach (ICD-10-PCS; 2021-04-01)
PROC: 0SG3071 Fusion of Lumbosacral Joint with Autologous Tissue Substitute, Posterior Approach, Posterior Column, Open Approach (ICD-10-PCS; 2021-04-01)
PROC: 0SB40ZZ Excision of Lumbosacral Disc, Open Approach (ICD-10-PCS; 2021-04-01)
PROC: 4A11X4G Monitoring of Peripheral Nervous Electrical Activity, Intraoperative, External Approach (ICD-10-PCS; 2021-04-01)
PROC: 0SG10AJ Fusion of 2 or more Lumbar Vertebral Joints with Interbody Fusion Device, Posterior Approach, Anterior Column, Open Approach (ICD-10-PCS; principal; 2021-04-01 12:00)
DX: M48.061 Spinal stenosis, lumbar region without neurogenic claudication (principal); I50.32 Chronic diastolic (congestive) heart failure; J82.83 Eosinophilic asthma; M48.07 Spinal stenosis, lumbosacral region; M41.86 Other forms of scoliosis, lumbar region; K21.9 Gastro-esophageal reflux disease without esophagitis; I11.0 Hypertensive heart disease with heart failure; Z86.718 Personal history of other venous thrombosis and embolism; Z86.711 Personal history of pulmonary embolism; H40.9 Unspecified glaucoma; R74.01 Elevation of levels of liver transaminase levels; D64.9 Anemia, unspecified
CPT/HCPCS: 36415; 71045-TC-FY; 72131-TC; 76000-TC-FY; 80048; 80053; 82962; 83735; 84100; 85025; 85027; 86850; 86900; 86901; 94010; 94760; 97116-GP; 97162-GP; J0131; J0475; J1100; J1644